=== PATIENT | male | born 1975 | race Caucasian/White ===

== ENCOUNTER 2016-09-24 13:26 | Emergency (ER) | payer MEDICAID ==
[2016-09-24] MEDS ORDERED: LACTATED RINGERS 1,000 ML ONE (14:03)
[2016-09-24] MEDS ORDERED: DIAZEPAM 5 MG/ML SYRINGE 2 ML ONE ×2 (14:03→14:45)
[2016-09-24 14:30] LABS: ABSOLUTE NEUTROPHIL COUNT 2.1 K/mm3 (1.8-7.7); BASO % 0.7 % (0.2-1.0); EOS % 0.5 % (0.9-2.9); HEMATOCRIT 44.7 % (32.0-52.0); HEMOGLOBIN 15.5 gm/l (14.0-18.0); IMM NEUT% 0.7 % (0-1); LYMPH # 1.6 (1.0-4.8); LYMPH % 36.4 % (15-45); MEAN CELL VOLUME 98.7 fl (80.0-94.0); MEAN CORPUSCULAR HEMOGLOBIN 34.2 pg (27.0-31.0); MEAN CORPUSCULAR HGB CONC 34.7 g/dl (33.0-37.0); MEAN PLATELET VOLUME 10.7 fl (7.4-10.4); MONO # 0.6 (0.0-0.8); MONO % 13.3 % (4-12); NEUT % 48.4 % (43-75); PLATELET COUNT 97 K/mm3 (130-400)
[2016-09-24 14:40] LABS: ALB/GLOB RATIO 1.6 (>1.0); ALBUMIN 4.7 gm/dL (3.5-5.7); CALCIUM 9.8 mg/dL (8.6-10.3); MAGNESIUM 1.4 mg/dL (1.9-2.7)
[2016-09-24] MEDS ORDERED: MAGNESIUM SULFATE 2 G/50 ML 50 ML IV ONE (15:15)
[2016-09-24 16:41] LABS: SPECIFIC GRAVITY 1.015 (1.001-1.030); URINE BILIRUBIN NEGATIVE (NEGATIVE); URINE BLOOD NEGATIVE (NEGATIVE); URINE GLUCOSE (UA) NEGATIVE (NEGATIVE); URINE LEUKOCYTE ESTERASE NEGATIVE (NEGATIVE); URINE NITRITE NEGATIVE (NEGATIVE); URINE PROTEIN NEGATIVE (NEGATIVE); URINE UROBILINOGEN NORMAL (0-1 mg/dl)
[2016-09-24] MEDS ORDERED: DIAZEPAM 5 MG TABLET ONE (16:49)
[2016-09-24 16:55] LABS: AMPHETAMINES/METHAMPHETAMINES NEGATIVE (NEGATIVE); COCAINE NEGATIVE (NEGATIVE); MARIJUANA NEGATIVE (NEGATIVE); METHADONE NEGATIVE (NEGATIVE); OPIATES NEGATIVE (NEGATIVE); TRICYCLIC ANTIDEPRESSANTS NEGATIVE (NEGATIVE)
[2016-09-24 16:56] LABS: URINE APPEARANCE CLEAR; URINE COLOR DARK YELLOW
== END 2016-09-24 16:57 | disposition home or self-care (01) ==
LOC: ED 13:26
DX: F10.239 Alcohol dependence with withdrawal, unspecified (principal); R53.81 Other malaise; R11.0 Nausea; R25.1 Tremor, unspecified
CPT/HCPCS: 83690; 85025; 80053; 83735; 81003; 96375; 99284 ×2; 96374; 93005; A9270; J3360 ×2; J7120; J3475; G0477; G0479